=== PATIENT | female | born 1970 | race Caucasian/White ===

== ENCOUNTER → 2016-09-13 | Outpatient (CLI) | payer MEDICAID ==
[~2016-09-13] MED LIST: GADOBUTROL 10 ML VIAL IVP ONE
== END ==
LOC: FIMAGING 18:09 → MERGE 18:09
PROVIDERS: ATTEND Ophthalmology
DX: H30.90 Unspecified chorioretinal inflammation, unspecified eye (principal); J01.00 Acute maxillary sinusitis, unspecified
CPT/HCPCS: 82164-90; A9585